=== PATIENT | female | born 1980 | race Caucasian/White ===

== ENCOUNTER 2018-03-18 21:53 | Emergency (ER) | payer MEDICAID ==
[2018-03-18 22:05] VITALS: BP 148/90; PULSE 84; RESP 16; TEMP 97.6; O2SAT 100
[2018-03-18] MEDS ORDERED: DiphenhydrAMINE 50 mg/ml Inj IVP STA (22:39)
[2018-03-18] MEDS ORDERED: methylPREDNISolone 125 MG in Sodium Chloride 0.9% 100 ML IV STA (22:41)
[2018-03-18] MEDS ORDERED: DiphenhydrAMINE 50 mg/ml Inj ONE (23:01)
--- NOTE | 2018-03-18 23:29 | C.PDOC ---
History Of Present Illness 37 year old female presents to the ED for evaluation of diffuse pruritic rash. Patient reports she took Claritin today at 18:00 with no relief to her symptoms. Patient denies any known allergens, fever, chills, nausea, vomiting, SOB, wheezing, retractions, lip swelling, tongue swelling, oral lesions. Time Seen by Provider: 03/18/18 22:29 Chief Complaint (Nursing): Allergic Reaction History Per: Patient History/Exam Limitations: no limitations Onset/Duration Of Symptoms: Days Current Symptoms Are (Timing): Still Present Possible Cause: Unknown Associated Symptoms: Skin Rash. denies: Swelling, Trouble Swallowing Home/EMS Treatment: Other (Claritin) Recent travel outside of the [place]: No Additional History Per: Patient Past Medical History Reviewed: Historical Data, Nursing Documentation, Vital Signs Vital Signs: Last Vital Signs Temp 97.6 F 03/18/18 22:01 Pulse 84 03/18/18 22:01 Resp 16 03/18/18 22:01 BP 148/90 03/18/18 22:01 Pulse Ox 100 03/19/18 00:25 - Medical History PMH: Gastritis, HTN Surgical History: Appendectomy, Family History: States: Unknown Family Hx - Social History Hx Tobacco Use: No Hx Alcohol Use: No Hx Substance Use: No - Immunization History Hx Tetanus Toxoid Vaccination: No Hx Influenza Vaccination: No Hx Pneumococcal Vaccination: No Review Of Systems Constitutional: Negative for: Fever, Chills ENT: Negative for: Nose Discharge, Nose Congestion, Mouth Swelling Respiratory: Negative for: Cough, Shortness of Breath, Wheezing Gastrointestinal: Negative for: Nausea, Vomiting Skin: Positive for: Rash Physical Exam - Physical Exam Appears: Non-toxic, No Acute Distress Skin: Normal Color, Warm, Dry, Rash (diffuse urticaria over upper, lower extremities, ) Head: Atraumatic, Normacephalic Eye(s): bilateral: Normal Inspection Ear(s): Bilateral: Normal Oral Mucosa: Moist Tongue: No Swelling Lips: No Swelling Throat: Normal, No Erythema Neck: Normal ROM, Supple Chest: Symmetrical Cardiovascular: Rhythm Regular Respiratory: Normal Breath Sounds, No Stridor, No Wheezing Extremity: Normal ROM Neurological/Psych: Oriented x3, Normal Speech Gait: Steady ED Course And Treatment O2 Sat by Pulse Oximetry: 100 (ON RA) Pulse Ox Interpretation: Normal Progress Note: Plan: - Benadryl 50 mg IVP. - Pepcid 20 mg po. - Solumedrol 125 mg IVP. Patient is resting comfortably, tolerating PO, has no shortness of breath, has no intra-oral swelling, no stridor. Patient notes that pruritus has improved.. Patient was advised to avoid potential allergens, and to follow up with physician in 1-2 days. Disposition Counseled Patient/Family Regarding: Diagnosis, Need For Followup, Rx Given - Disposition Referrals: Mamadou Kennedy MD [Non-Staff] - Disposition: HOME/ ROUTINE Disposition Time: 23:29 Condition: STABLE Additional Instructions: Please follow up with PMD Take medications as directed Return to ER if difficulty breathing, swelling of lips or worse Prescriptions: DiphenhydrAMINE [Benadryl] 50 mg PO TID #20 cap Famotidine [Pepcid] 20 mg PO DAILY #10 tab predniSONE [Prednisone] 40 mg PO DAILY #8 tab Instructions: Hives (DC) Forms: [employer] (Rwandan) Print Language: GUAMANIAN - Clinical Impression Clinical Impression: Allergic urticaria - 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 - Scribe Statement The provider has reviewed the documentation as recorded by the Scribe Scotty Ortiz All medical record entries made by the Alexibkate were at my direction and personally dictated by me. I have reviewed the chart and agree that the record accurately reflects my personal performance of the history, physical exam, medical decision making, and the department course for this patient. I have also personally directed, reviewed, and agree with the discharge instructions and disposition.
== END 2018-03-18 23:57 | disposition home or self-care (01) ==
LOC: C.ER 21:53
DX: L50.0 Allergic urticaria (principal)
CPT/HCPCS: 96365; 96375; 99284; J1200; J2930

== ENCOUNTER 2018-05-03 14:27 | Emergency (ER) | payer MEDICAID ==
[2018-05-03 14:39] VITALS: TEMP 98.1; O2SAT 98
--- NOTE | 2018-05-03 15:02 | C.PDOC ---
History Of Present Illness 37 yo female come in for evaluation of lower back pain gradually developed for past 3 months. Pain is localized, worse with movement. 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 Otherwise, pt denies fever, chills, recent illness, sore throat, CP, SOB, dyspnea, abd. pain, N/V, UTi sx, denies weakness, sensory or vascular deficits to B/L LEs. Ambulate to Ed for evaluation, not in nay apparent distress. Time Seen by Provider: 05/03/18 14:29 Chief Complaint (Nursing): Back Pain History Per: Patient Past Medical History Reviewed: Historical Data, Nursing Documentation, Vital Signs Vital Signs: Last Vital Signs Temp 98.1 F 05/03/18 14:36 Pulse 75 05/03/18 14:36 Resp 18 05/03/18 14:36 BP 124/85 05/03/18 14:36 Pulse Ox 98 05/03/18 15:04 - Medical History PMH: Gastritis, HTN Surgical History: Appendectomy, Family History: States: Unknown Family Hx - Social History Hx Tobacco Use: No Hx Alcohol Use: No Hx Substance Use: No - Immunization History Hx Tetanus Toxoid Vaccination: No Hx Influenza Vaccination: No Hx Pneumococcal Vaccination: No Review Of Systems Except As Marked, All Systems Reviewed And Found Negative. Constitutional: Negative for: Fever, Chills ENT: Negative for: Throat Pain Cardiovascular: Negative for: Chest Pain Respiratory: Negative for: Cough Gastrointestinal: Negative for: Nausea, Vomiting, Abdominal Pain, Diarrhea Genitourinary: Negative for: Dysuria, Frequency, Incontinence Musculoskeletal: Positive for: Back Pain Skin: Negative for: Rash Neurological: Negative for: Weakness, Numbness Physical Exam - Physical Exam Appears: Well, Non-toxic, No Acute Distress Skin: Normal Color, Warm, Dry, No Rash, No Ecchymosis Head: Normacephalic Eye(s): bilateral: PERRL Nose: No Flaring, No Discharge Oral Mucosa: Moist Throat: No Erythema, No Drooling Neck: Normal ROM, Trachea Midline, Supple Cardiovascular: Rhythm Regular, No Murmur, No JVD Respiratory: No Decreased Breath Sounds, No Accessory Muscle Use, No Stridor, No Wheezing Gastrointestinal/Abdominal: Soft, No Tenderness, No Distention, No Guarding, No Rebound Back: No CVA Tenderness, No Vertebral Tenderness, Paraspinal Tenderness (lumbar , mild) Extremity: Normal ROM, No Pedal Edema, No Deformity, No Swelling Neurological/Psych: Oriented x3, Normal Speech, Normal Motor, Normal Sensation, Normal Reflexes ED Course And Treatment O2 Sat by Pulse Oximetry: 98 Pulse Ox Interpretation: Normal Progress Note: On re-evaluation, pt is afebrile, hemodynamicaly stable. Non- toxic. Ambulatory in ED with stable gait. ENT: no acute findings. Abd: benign , (-) guarding, (-) rebound. back: (-) CVA tenderness. Neurologicaly intact. UA review- normal study. preg (-). Pt has clinical findings c/w lower back pain. Pt advised. ref. to f/u with PMD in 2-3 days for re-evaluation. return to ED if any worsening or new changes Disposition Counseled Patient/Family Regarding: Studies Performed, Diagnosis, Need For Followup - Disposition Referrals: Yecenia Quiles MD [Medical Doctor] - Disposition: HOME/ ROUTINE Disposition Time: 15:19 Condition: STABLE Additional Instructions: Light duty to lower back, avoid heavy lifting , etc for 1-2 weeks Take medication as prescribed Follow up with PMD in 2-3 days for re-evaluation. return to ED if any worsening or new changes. Prescriptions: Gabapentin [Neurontin] 300 mg PO HS #14 cap Ibuprofen [Motrin Tab] 600 mg PO TID #20 tab Methocarbamol [Robaxin] 500 mg PO TID #14 tab traMADol [Ultram] 50 mg PO BID #7 tab Instructions: Low Back Pain (DC) Forms: [employer] (Tajik), Work Excuse Print Language: AZERI - Clinical Impression Clinical Impression: Low back pain
[2018-05-03 15:14] LABS: SQUAMOUS EPITHIAL 8 /hpf (0-5); URINE BILIRUBIN NEGATIVE (NEGATIVE); URINE BLOOD NEGATIVE (NEGATIVE); URINE CLARITY Hazy (Clear); URINE COLOR Yellow (YELLOW); URINE GLUCOSE (UA) NORMAL (Normal); URINE LEUKOCYTE ESTERASE NEG Leu/uL (Negative); URINE PROTEIN NEGATIVE (NEGATIVE); URINE UROBILINOGEN NORMAL mg/dL (0.2-1.0)
[2018-05-03 15:45] VITALS: BP 121/71; PULSE 70; RESP 16
== END 2018-05-03 15:45 | disposition home or self-care (01) ==
LOC: C.ER 14:27
DX: M54.5 Low back pain (principal)